=== PATIENT | male | born 1960 | race Caucasian/White ===

== ENCOUNTER 2017-04-06 06:45 | Emergency (ER) | payer OTHER ==
[~2017-04-06] VITALS: Ht 167.6 cm; Wt 125.0 kg
[~2017-04-06 06:45] MED LIST: ASPI81 PO; FENO160 PO; HYDR25TA PO; LISI-661 PO; METF500T4 PO; SIMV-260 PO
[2017-04-06] MEDS ORDERED: GLIP5 PO (06:52)
[2017-04-06] MEDS ORDERED: OMEG-50 PO (06:52)
[2017-04-06] MEDS ORDERED: PANT40TA25 PO (06:52)
[2017-04-06] MEDS ORDERED: VITAD1000 PO (06:52)
[2017-04-06] MEDS ORDERED: IOVERSOL 350 MG/ML 100 ML VIAL ONE (07:42)
[2017-04-06 07:52] LABS: BASOPHILS # (AUTO) 0.03 K/uL (0.00-0.20); BASOPHILS % (AUTO) 0.7 % (0.0-2.0); EOSINOPHILS % (AUTO) 2.07 % (1.0-6.0); HEMATOCRIT 41.9 % (41-53); HEMOGLOBIN 14.7 g/dL (13.5-17.5); LYMPHOCYTES # (AUTO) 1.2 K/uL (1.0-4.8); LYMPHOCYTES % (AUTO) 25.3 % (22.0-44.0); MEAN CORPUSCULAR HEMOGLOBIN 32.6 pg (26.0-34.0); MEAN CORPUSCULAR HGB CONC 35.1 G/dL (31.0-37.0); MEAN CORPUSCULAR VOLUME 93 fL (80-100); MONOCYTES # (AUTO) 0.4 K/uL (0.1-1.0); MONOCYTES % (AUTO) 8.3 % (2.0-9.0); NEUTROPHILS % (AUTO) 63.6 % (40.0-70.0); PLATELET COUNT (AUTO) 224 K/uL (150-450); RED BLOOD CELL COUNT(AUTO) 4.52 MIL/uL (4.50-5.90); RED CELL DISTRIBUTION WIDTH 12.6 % (11.5-14.5)
[2017-04-06 08:20] LABS: ANION GAP 7 mmol/L (8-16); CARBON DIOXIDE 29 mmol/L (22-29); CHLORIDE 96 mmol/L (98-107); GLOMERULAR FILTR. RATE CALC > 60 mL/min (>60); GLUCOSE,RANDOM 129 mg/dL (70-110); POTASSIUM 3.8 mmol/L (3.5-5.1); SODIUM SERUM 132 mmol/L (136-145); UREA NITROGEN, BLOOD 16 mg/dL (7-18)
[2017-04-06 09:01] VITALS: BP 123/81
== END 2017-04-06 09:40 | disposition home or self-care (01) ==
LOC: EMS 06:46
DX: R13.10 Dysphagia, unspecified (principal); I10 Essential (primary) hypertension; E11.9 Type 2 diabetes mellitus without complications; K21.9 Gastro-esophageal reflux disease without esophagitis; I25.10 Atherosclerotic heart disease of native coronary artery without angina pectoris
CPT/HCPCS: 36415; 70491; 80048; 85025; 99285; Q9967

== ENCOUNTER 2018-04-04 07:32 | Emergency (ER) | payer OTHER ==
[~2018-04-04] VITALS: Ht 170.2 cm; Wt 127.3 kg
[~2018-04-04 07:32] MED LIST changes: +GLIP5 PO; -METF500T4 PO; +OMEG-50 PO; +PANT40TA25 PO; +VITAD1000 PO
[2018-04-04] MEDS ORDERED: HYDROmorphone 2 MG/ML SYRINGE IVP ONE (08:15)
[2018-04-04] MEDS ORDERED: ONDANSETRON HCL 4 MG/2 ML VIAL IVP ONE (08:15)
[2018-04-04 08:17] LABS: BASOPHILS % (AUTO) 0.6 % (0.0-2.0); EOSINOPHILS % (AUTO) 2.2 % (1.0-6.0); HEMATOCRIT 42.1 % (41-53); HEMOGLOBIN 14.9 g/dL (13.5-17.5); LYMPHOCYTES # (AUTO) 2.1 K/uL (1.0-4.8); LYMPHOCYTES % (AUTO) 36.4 % (22.0-44.0); MEAN CORPUSCULAR HEMOGLOBIN 32.3 pg (26.0-34.0); MEAN CORPUSCULAR HGB CONC 35.3 G/dL (31.0-37.0); MEAN CORPUSCULAR VOLUME 91 fL (80-100); MONOCYTES # (AUTO) 0.6 K/uL (0.1-1.0); MONOCYTES % (AUTO) 9.7 % (2.0-9.0); NEUTROPHILS # (AUTO) 2.9 K/uL (1.8-7.7); NEUTROPHILS % (AUTO) 51.1 % (40.0-70.0); PLATELET COUNT (AUTO) 252 K/uL (150-450); RED BLOOD CELL COUNT(AUTO) 4.61 MIL/uL (4.50-5.90); RED CELL DISTRIBUTION WIDTH 12.8 % (11.5-14.5)
[2018-04-04 08:26] LABS: ANION GAP 11 mmol/L (8-16); CARBON DIOXIDE 27 mmol/L (22-29); CHLORIDE 97 mmol/L (98-107); CREATININE 0.79 mg/dL (0.60-1.30); GLOMERULAR FILTR. RATE CALC > 60 mL/min (>60); GLUCOSE,RANDOM 146 mg/dL (70-110); POTASSIUM 3.7 mmol/L (3.5-5.1); SODIUM SERUM 135 mmol/L (136-145); UREA NITROGEN, BLOOD 13 mg/dL (7-18)
[2018-04-04 08:32] LABS: ALANINE AMINOTRANSFERASE 66 U/L (12-78); ALBUMIN 3.9 g/dL (3.4-5.0); ALKALINE PHOSPHATASE 72 U/L (46-116); ASPARTATE AMINOTRANSFERASE 41 U/L (15-37); BILIRUBIN,TOTAL 0.9 mg/dL (0.1-1.0); LIPASE 214 U/L (73-393); TOTAL PROTEIN, SERUM 7.7 g/dL (6.4-8.2)
[2018-04-04 08:52] LABS: APPEARANCE,URINE CLEAR (CLEAR); BILIRUBIN,URINE NEGATIVE (NEGATIVE); GLUCOSE, URINE (UA) NEGATIVE (NEGATIVE); KETONES,URINE NEGATIVE (NEGATIVE); LEUKOCYTE ESTERASE ,URINE NEGATIVE (NEGATIVE); NITRATE,URINE NEGATIVE (NEGATIVE); OCCULT BLOOD,URINE NEGATIVE (NEGATIVE); PH,URINE 6.5 (5.0-8.0); PROTEIN,URINE NEGATIVE (NEGATIVE)
[2018-04-04 10:41] VITALS: BP 101/63
== END 2018-04-04 11:43 | disposition home or self-care (01) ==
LOC: EMS 07:34
DX: R10.30 Lower abdominal pain, unspecified (principal); I10 Essential (primary) hypertension; E11.9 Type 2 diabetes mellitus without complications; K21.9 Gastro-esophageal reflux disease without esophagitis; Z79.84 Long term (current) use of oral hypoglycemic drugs; Z79.82 Long term (current) use of aspirin; Z79.899 Other long term (current) drug therapy
CPT/HCPCS: 36415; 74176; 80053; 81003; 83690; 85025; 93005; 96374; 96375; 99285; J1170; J2405

== ENCOUNTER 2020-09-16 06:01 | Emergency (ER) | payer OTHER ==
[~2020-09-16] VITALS: Ht 167.6 cm; Wt 120.5 kg
[~2020-09-16 06:01] MED LIST changes: +ASPI-1450 PO; -ASPI81 PO; +CHOL100018 PO; -FENO160 PO; +FENO160T14 PO; -HYDR25TA PO; +HYDR25TA2 PO; -LISI-661 PO; +LISI-893 PO; +PANT-31 PO; -PANT40TA25 PO; -VITAD1000 PO
[2020-09-16 06:49] VITALS: BP 143/79
[2020-09-16 09:25] LABS: GLUCOSE,POINT OF CARE 200 MG/DL (70-110)
== END 2020-09-16 07:00 | disposition home or self-care (01) ==
LOC: EMS 06:02
DX: N47.7 Other inflammatory diseases of prepuce (principal); E11.65 Type 2 diabetes mellitus with hyperglycemia; I25.10 Atherosclerotic heart disease of native coronary artery without angina pectoris; E11.9 Type 2 diabetes mellitus without complications; I10 Essential (primary) hypertension
CPT/HCPCS: 82962; 99283

== ENCOUNTER 2021-05-13 06:27 | Emergency (ER) | payer OTHER ==
[~2021-05-13] VITALS: Ht 172.7 cm; Wt 120.0 kg
[~2021-05-13 06:27] MED LIST changes: +OMEG-126 PO; -OMEG-50 PO
[2021-05-13 07:30] VITALS: BP 128/72
[2021-05-13] MEDS ORDERED: DICL100G51 TP (07:51)
[2021-05-13] MEDS ORDERED: LIDOCAINE 5% TRANSDERMAL PATCH TD ONE (08:00)
[2021-05-13] MEDS ORDERED: ACETAMINOPHEN 325 MG TABLET PO ONE (08:00)
== END 2021-05-13 08:05 | disposition home or self-care (01) ==
LOC: EMS 06:27
DX: M54.32 Sciatica, left side (principal); I25.10 Atherosclerotic heart disease of native coronary artery without angina pectoris; E11.9 Type 2 diabetes mellitus without complications; K21.9 Gastro-esophageal reflux disease without esophagitis; I10 Essential (primary) hypertension; Z79.82 Long term (current) use of aspirin; Z79.899 Other long term (current) drug therapy
CPT/HCPCS: 82962; 99283

== ENCOUNTER 2021-06-18 16:14 | Emergency (ER) | payer OTHER ==
[~2021-06-18] VITALS: Ht 167.6 cm; Wt 127.3 kg
[~2021-06-18 16:14] MED LIST changes: +DICL100G51 TP
[2021-06-18 16:25] VITALS: BP 144/90
[2021-06-18] MEDS ORDERED: VALA100026 PO (18:09)
== END 2021-06-18 20:26 | disposition home or self-care (01) ==
LOC: EMS 16:24
DX: B02.9 Zoster without complications (principal); I10 Essential (primary) hypertension; E11.9 Type 2 diabetes mellitus without complications; E78.00 Pure hypercholesterolemia, unspecified; Z79.82 Long term (current) use of aspirin; Z79.899 Other long term (current) drug therapy
CPT/HCPCS: 99283